=== PATIENT | male | born 1985 | race Caucasian/White ===

== ENCOUNTER 2018-02-11 17:09 | Emergency (ER) | payer MEDICAID ==
[2018-02-11] MEDS ORDERED: BUPIVACAINE 0.5% PF 10 ML VIAL SUBQ STA (20:28)
--- NOTE | 2018-02-11 21:14 | ED Physician Documentation ---
PD HPI UPPER EXT INJURY - Stated complaint Stated Complaint: L THUMB LAC - Chief complaint Chief Complaint: Laceration - History obtained from History obtained from: Patient, Family - History of Present Illness Location: Left, Finger (thumb) Type of injury: Laceration Where injury occurred: Home Timing - onset: Enter time (1600), Today Timing - duration: Hours Timing - details: Abrupt onset, Still present Improved by: Rest, Immobilization Worsened by: Moving, Palpating Associated symptoms: No: Weakness, Numbness, Tingling Contributing factors: No: Anticoagulated Similar symptoms before: Diagnosis (lacertion) Recently seen: Not recently seen - Additonal information Additional information: 32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 He states he was pushing a piece of wood through with a push stick and grabbed the leftover piece of wood and nicked the tip of his left thumb with table saw. He was able to control bleeding with direct pressure and is placed a dressing over it. He is come to the emergency department now for suturing. He is uncertain about his tetanus status. Review of Systems Constitutional: denies: Fever Eyes: denies: Decreased vision Ears: denies: Ear pain Nose: denies: Rhinorrhea / runny nose, Congestion Throat: denies: Sore throat Respiratory: denies: Cough GI: denies: Vomiting : denies: Dysuria, Frequency Skin: reports: Laceration (s). denies: Rash Musculoskeletal: reports: Extremity pain. denies: Neck pain, Back pain, Joint pain Neurologic: denies: Generalized weakness, Focal weakness, Numbness PD PAST MEDICAL HISTORY - Past Medical History Past Medical History: No Cardiovascular: None Respiratory: None Neuro: None Endocrine/Autoimmune: None GI: None : None HEENT: None Psych: None Musculoskeletal: None Derm: None - Past Surgical History Past Surgical History: Yes HEENT: Tonsil/Adenoidectomy - Present Medications Home Medications: Ambulatory Orders Medication Instructions Recorded Confirmed Amox/Clav 875/125 [Augmentin] 1 each PO Q12H #10 tablet 02/11/18 - Allergies Allergies/Adverse Reactions: Allergies Allergy/AdvReac Type Severity Reaction Status Date / Time No Known Drug Allergies Allergy Verified 02/11/18 17:23 - Social History Does the pt smoke?: No Smoking Status: Never smoker Does the pt drink ETOH?: Yes Does the pt have substance abuse?: No - Immunizations Immunizations are current?: No Immunizations: TDAP >10years/unknown - POLST Patient has POLST: No PD ED PE NORMAL - Vitals Vital signs reviewed: Yes (hypertensive ) - General General: Alert and oriented X 3, No acute distress, Well developed/nourished - HEENT HEENT: Atraumatic, PERRL, EOMI - Respiratory Respiratory: No respiratory distress - Derm Derm: Normal color, Warm and dry, No rash - Extremities Extremities: No deformity, Other (There is a macerated laceration to the tip of the left thumb he does penetrate deeply there are no shards of bone or palpable bone in the defect. 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, No motor deficit, No sensory deficit, Normal speech Eye Opening: Spontaneous Motor: Obeys Commands Verbal: Oriented GCS Score: 15 - Psych Psych: Normal mood, Normal affect Results - Vitals Vitals: Vital Signs - 24 hr 02/11/18 02/11/18 02/11/18 17:19 21:55 21:57 Temperature 36.4 C L 36.5 C Heart Rate 80 86 Respiratory 16 17 18 Rate Blood Pressure 147/90 H 145/99 H O2 Saturation 100 97 Oxygen O2 Source Room air - Rads (name of study) hand Radiology: Prelim report reviewed (Impression: Mildly displaced tuft fractures.), EMP read indepedently, See rad report Procedures - Laceration (location) left thumb Length in cm: 3 Wound type: Irregular, Into subcut fat, Clean Neurovascular status: Sensory intact, Motor intact, Vascular intact Anesthesia: Marcaine 0.5%, OTH (digital block) Wound Preparation: Hibiclens, Irrigated copiously NS, Wound explored, To the base Skin layer closure: Nylon, Interrupted, Size #-0 - enter number (4-0) Other: Patient tolerated well, No complications, Neurovascular intact, Dressing applied, Tetanus booster given Complexity: Simple PD MEDICAL DECISION MAKING - ED course Complexity details: reviewed results, re-evaluated patient, considered differential, d/w patient, d/w family ED course: 32-year-old male with a laceration to his left thumb with a lot of macerated tissue is cleaned and reapproximated x-ray of his thumb is obtained. There is evidence of violation of the bone and the patient is administered PO augmentin 875 Departure - Departure Disposition: 01 Home, Self Care Clinical Impression: Laceration of left thumb Qualifiers: Encounter type: initial encounter Damage to nail status: without damage Foreign body presence: without foreign body Qualified Code(s): S61.012A - Laceration without foreign body of left thumb without damage to nail, initial encounter Condition: Stable Instructions: ED Laceration Hand Follow-Up: Inge Burks ARNP [Primary Care Provider] - Prescriptions: Amox/Clav 875/125 [Augmentin] 1 each PO Q12H #10 tablet Comments: On x-ray examination of your thumb there is evidence of violation of the bone at the tip of your thumb. For this you will need to be on some prophylactic antibiotic for about 5 days. If you develop signs of infection return to the emergency department.
[2018-02-11] MEDS ORDERED: TETANUS/DIPHTHERIA/PERTUSSIS 0.5 ML SYRINGE IM ONE (21:17)
[2018-02-11] MEDS ORDERED: AMOX/CLAV 875 MG/125 MG TABLET PO STA (21:34)
--- NOTE | 2018-02-11 21:51 | XRAY Report ---
Reason: deep thumb lac tip Procedure Date: 02/11/2018 Accession Number: [id number] / [id number] Procedure: XR - Hand 3 View LT CPT Code: FULL RESULT: EXAM: LEFT HAND RADIOGRAPHY EXAM DATE: 02/11/2018 09:35 PM. CLINICAL HISTORY: Deep thumb laceration at tip. COMPARISON: None. TECHNIQUE: 3 views. FINDINGS: Bones: Mildly displaced tuft fractures. No other bony abnormality. Joints: Normal. No subluxations. Soft Tissues: Associated soft tissue swelling. IMPRESSION: Mildly displaced tuft fractures. RADIA
[2018-02-11 21:58] VITALS: BP 145/99
== END 2018-02-11 22:05 | disposition home or self-care (01) ==
LOC: ED 17:09
DX: S61.012A Laceration without foreign body of left thumb without damage to nail, initial encounter (principal); W27.0XXA Contact with workbench tool, initial encounter; Y92.009 Unspecified place in unspecified non-institutional (private) residence as the place of occurrence of the external cause; Z23 Encounter for immunization
CPT/HCPCS: 12002; 73130; 90471; 90715; 99283; A9270

== ENCOUNTER 2018-08-19 14:59 | Outpatient (CLI) | payer MEDICAID | END 2018-08-19 15:00 | disposition critical access hospital (66) | LOC: EMS 14:59 | PROVIDERS: ATTEND Surgery | DX: S06.9X1A Unspecified intracranial injury with loss of consciousness of 30 minutes or less, initial encounter (principal); S69.92XA Unspecified injury of left wrist, hand and finger(s), initial encounter; V22.4XXA Motorcycle driver injured in collision with two- or three-wheeled motor vehicle in traffic accident, initial encounter | CPT/HCPCS: A0425; A0427; A0999 ==

== ENCOUNTER 2018-08-19 15:30 | Emergency (ER) | payer MEDICAID ==
[2018-08-19] MEDS ORDERED: MORPHINE 2 MG/ML SYRINGE IVP STA (15:36)
[2018-08-19] MEDS ORDERED: SODIUM CHLORIDE 0.9% 1,000 ML IV ONE (15:37)
[2018-08-19] MEDS ORDERED: ONDANSETRON 4 MG/2 ML VIAL IVP STA (15:37)
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
[2018-08-19] MEDS ORDERED: IOVERSOL 320 100 ML VIAL IVP ONE ×2 (15:48→20:08)
[2018-08-19 15:53] LABS: BASOPHILS # (AUTO) 0.1 10^3/uL (0.0-0.1); BASOPHILS % (AUTO) 0.8 %; EOSINOPHILS % (AUTO) 0.4 %; HGB - HEMOGLOBIN 14.5 g/dL (14.0-18.0); LYMPHOCYTES # (AUTO) 1.5 10^3/uL (1.5-3.5); LYMPHOCYTES % (AUTO) 22.1 %; MEAN CORPUSCULAR HEMOGLOBIN 31.5 pg (27.0-31.0); MEAN CORPUSCULAR HGB CONC 34.5 g/dL (32.0-36.0); MEAN CORPUSCULAR VOLUME 91.4 fL (80.0-94.0); MEAN PLATELET VOLUME 7.3 fL (7.4-11.4); MONOCYTES # (AUTO) 0.4 10^3/uL (0.0-1.0); MONOCYTES % (AUTO) 6.3 %; NEUTROPHILS # (AUTO) 4.9 10^3/uL (1.5-6.6); NEUTROPHILS % (AUTO) 70.4 %; PLT - PLATELET COUNT 200 10^3/uL (130-450); RED BLOOD COUNT 4.59 10^6/uL (4.70-6.10); RED CELL DISTRIBUTION WIDTH 12.9 % (12.0-15.0); WHITE BLOOD COUNT 6.9 x10^3/uL (4.8-10.8)
[2018-08-19 16:09] LABS: ALBUMIN 4.4 g/dL (3.2-5.5); ALBUMIN/GLOBULIN RATIO 1.6 (1.0-2.2); BILIRUBIN,TOTAL 0.9 mg/dL (0.2-1.0); CALCIUM 9.5 mg/dL (8.5-10.3); CREATININE 0.9 mg/dL (0.6-1.2); TOTAL PROTEIN 7.2 g/dL (6.7-8.2)
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
[2018-08-19] MEDS ORDERED: BACITRACIN OINT TOP STA (17:00)
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
[2018-08-19 17:49] VITALS: BP 127/83
== END 2018-08-19 18:00 | disposition home or self-care (01) ==
LOC: EDUNIT# → ED 15:30
DX: S52.572A Other intraarticular fracture of lower end of left radius, initial encounter for closed fracture (principal); S62.391A Other fracture of second metacarpal bone, left hand, initial encounter for closed fracture; S62.393A Other fracture of third metacarpal bone, left hand, initial encounter for closed fracture; S00.81XA Abrasion of other part of head, initial encounter; S02.40DA Maxillary fracture, left side, initial encounter for closed fracture; S02.40CA Maxillary fracture, right side, initial encounter for closed fracture; S00.83XA Contusion of other part of head, initial encounter; V22.0XXA Motorcycle driver injured in collision with two- or three-wheeled motor vehicle in nontraffic accident, initial encounter; Y93.I9 Activity, other involving external motion; Y92.821 Forest as the place of occurrence of the external cause
CPT/HCPCS: 36415; 70450; 70486; 71260; 72125; 73110; 73130; 74177; 80053; 80320; 83690; 85025; 86850; 86900; 86901; 96374; 99284; 99285; A9270; J2270; Q9967

== ENCOUNTER 2018-09-27 07:51 | Day surgery (SDC) | payer MEDICAID ==
[~2018-09-27 07:51] MED LIST: CEFAZOLIN SODIUM IN 0.9 % NACL 2 GM/100 ML BAG IV ONE
[2018-09-27] MEDS ORDERED: LACTATED RINGERS 1,000 ML IV ONE (08:18)
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
[2018-09-27] MEDS ORDERED: BUPIVACAINE 0.5% PF 10 ML VIAL ONE (09:05)
[2018-09-27] MEDS ORDERED: LIDOCAINE-MPF 2% 5 ML VIAL IM ONE (09:30)
[2018-09-27] MEDS ORDERED: PROPOFOL 200 MG/20 ML VIAL IVP ONE (09:30)
[2018-09-27] MEDS ORDERED: ROCURONIUM 50 MG/5 ML VIAL IVP ONE (09:30)
[2018-09-27] MEDS ORDERED: ONDANSETRON 4 MG/2 ML VIAL IVP ONE (09:30)
[2018-09-27] MEDS ORDERED: KETOROLAC 30 MG/ML VIAL IVP ONE (09:30)
[2018-09-27] MEDS ORDERED: DEXAMETHASONE 4 MG/ML VIAL IVP ONE (09:30)
[2018-09-27] MEDS ORDERED: fentaNYL 100 MCG/2 ML VIAL IVP ONE (09:30)
[2018-09-27] MEDS ORDERED: MIDAZOLAM 2 MG/2 ML VIAL IVP ONE (09:30)
[2018-09-27] MEDS ORDERED: BUPIVACAINE 0.5% PF 30 ML VIAL INFIL ONE (09:51)
[2018-09-27] MEDS ORDERED: HYDROmorphone 0.5 MG/0.5 ML SYRINGE IVP PRN (10:24)
[2018-09-27] MEDS ORDERED: ONDANSETRON 4 MG/2 ML VIAL IVP PRN (10:24)
[2018-09-27] MEDS ORDERED: HYDROcod/ACETAM 5/325 MG TABLET PO PRN (10:24)
--- NOTE | 2018-09-27 10:29 | OPERATIVE REPORT ---
Operative Report - General Planned Procedure: Pilonidal cystectomy Pre-Op Diagnosis: Pilonidal cyst with abscess Procedure Performed: Pilonidal cystectomy with opening of abscess cavity Post Op Diagnosis: Same - Procedure Note Primary Surgeon: Cruz Reyna MD Anesthesia Provider: Tomas Hicks CRNA Anesthesia Technique: General ET tube, Local (30 mL of half percent Marcaine) IV Fluids (mL): 700 Estimated Blood Loss (mL): 15 Complications: None. - Other Other Information/Narrative: OPERATIVE DESCRIPTION/REPORT: After verbal and written informed consent was obtained detailing the risks of infection, bleeding requiring transfusion with its risks, nerve injury, and , and after I met with the patient confirming the surgery and the site of the surgery, the patient was brought to the operative suite and placed supine on the operating table. Great care was taken to avoid pressure points to prevent pressure necrosis or nerve injury. Monitoring devices were applied along with TEDs and pneumatic compressive stockings (to prevent DVT). The patient received preoperative antibiotics for surgical prophylaxis. Tomas Hicks CRNA sedated and anesthetized the patient for the entire procedure. The patient was prepped and draped in the usual sterile manner. With the patient draped my initials were clearly visible. A "time in" then confirmed that the patient was identified with 3 identifiers (name, date and medical record number), the history and physical was in the chart, the signed consent confirming the procedure was in the chart, the patient was in the correct position, the aforementioned prophylactic measures were in place or given, we had the correct personnel and equipment to complete the procedure and that anesthesia, surgery and nursing were given an opportunity to express any concerns. With the agreement of everyone in the room, we proceeded with the operation. An elliptical incision was then made encompassing all the pits. The pits were probed with a lacrimal duct probe to get an idea where and in which direction they were headed. The cyst had opened up into the patient's left buttock and this opening was separate and distinct from the pits. The incision was then taken down to the periosteum of the sacrum and the pilonidal cyst tract that had gone out to the left buttock was traversed with the plan of excising the entire tract. A 4 mm punch biopsy was used to excise the skin at the point of drainage on the left buttock and the tract was completely excised using Bovie electrocautery. The pilonidal cyst along with the attached skin was sent to pathology for evaluation. Meticulous hemostasis was obtained using Bovie electrocautery. Flaps were then raised laterally along the gluteus tanmay muscle in order to facilitate closure. This was primarily done using Bovie electrocautery. Once the skin could be brought together with the minimum amount of tension attention was directed to closure. The subcutaneous tissue was approximated using 2-0 Vicryl in an interrupted fashion. The skin was approximated using 2-0 nylon in an interrupted horizontal mattress stitches. This was done to better approximate the skin with the most support. Quarter inch iodophor gauze was placed into the 4 mm opening on the left buttock. A dressing was applied on the wound. At this point a time out was performed that confirmed that all the counts were correct, the procedure that was performed, the blood loss, the IV fluids administered, and the patients condition. A dressing was then applied. Having tolerated the procedure well, the patient was returned to a supine position, e xtubated, and subsequently taken to short stay in good and stable condition. [employer] disclaimer: This document was created in part using voice recognition technology. Because of the inherent limitations of the system ([employer]'s [employer] Dictate user manual states that the licensee understands that speech recognition is a statistical process and that recognition errors are inherent in the process), occasional same sounding word substitutions and grammatical errors do occur and persist despite proofreading. Please read this document for context.
[2018-09-27] MEDS ORDERED: HYDROcod/ACETAM 5/325 MG TABLET ONE (11:48)
[2018-09-27 12:03] VITALS: BP 117/82
== END 2018-09-27 07:52 | disposition home or self-care (01) ==
LOC: SDS 07:51
PROVIDERS: ATTEND Surgery
PROC: 0JB90ZZ Excision of Buttock Subcutaneous Tissue and Fascia, Open Approach (ICD-10-PCS; principal; 2018-09-27 09:00)
DX: L05.91 Pilonidal cyst without abscess (principal)
CPT/HCPCS: 11771; A9270; J0690; J7120

== ENCOUNTER 2018-09-30 21:26 | Outpatient (CLI) | payer MEDICAID | END 2018-09-30 21:27 | disposition critical access hospital (66) | LOC: EMS 21:26 | PROVIDERS: ATTEND Surgery | DX: G89.18 Other acute postprocedural pain (principal); M25.532 Pain in left wrist; M79.89 Other specified soft tissue disorders | CPT/HCPCS: A0425; A0427; A0999 ==

== ENCOUNTER 2018-09-30 22:17 | Emergency (ER) | payer MEDICAID ==
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
[2018-09-30] MEDS ORDERED: MORPHINE 10 MG/ML VIAL IVP STA (22:58)
[2018-09-30] MEDS ORDERED: KETOROLAC 30 MG/ML VIAL IVP STA (22:58)
--- NOTE | 2018-09-30 23:42 | XRAY Report ---
Reason: post operative pain Procedure Date: 09/30/2018 Accession Number: [id number] / [id number] Procedure: XR - Wrist 3 View LT CPT Code: FULL RESULT: EXAM: LEFT WRIST RADIOGRAPHY. EXAM DATE: 09/30/2018 11:15 PM. CLINICAL HISTORY: Post operative pain. COMPARISON: HAND 3 VIEW LT 08/19/2018 4:25 PM. WRIST 4 VIEW LT 08/19/2018 4:21 PM. TECHNIQUE: 3 views. FINDINGS: Bones: Subacute fractures of the second and third metacarpals status post operative fixation with unremarkable appearing surgical hardware. Fracture lines remain visible with anatomic alignment. Post distal radial fracture repair. The medial aspect of the epiphysis appears fragmented with intra-articular bony fragments and likely bony resorption. Remaining portion of the fracture repair appears unremarkable. Anatomic alignment. Tiny ulnar styloid fracture again noted. Joints: Normal. No subluxations. Soft Tissues: Swelling. IMPRESSION: 1. Post distal radial fracture repair. The medial aspect of the epiphysis appears fragmented with intra-articular bony fragments and likely bony resorption. Cannot exclude loosening and/or infection in the region. 2. Remaining portion of the fracture repairs of the radius and second/third metacarpals appears unremarkable. RADIA
[2018-10-01 00:23] VITALS: BP 142/106
== END 2018-10-01 00:23 | disposition home or self-care (01) ==
LOC: EDUNIT# → ED 22:17
DX: G89.18 Other acute postprocedural pain (principal); S62.301D Unspecified fracture of second metacarpal bone, left hand, subsequent encounter for fracture with routine healing; S52.502D Unspecified fracture of the lower end of left radius, subsequent encounter for closed fracture with routine healing; S62.303D Unspecified fracture of third metacarpal bone, left hand, subsequent encounter for fracture with routine healing; X58.XXXA Exposure to other specified factors, initial encounter
CPT/HCPCS: 96374; 99283

== ENCOUNTER 2020-02-26 09:38 | Outpatient (CLI) | payer MEDICAID ==
[2020-02-26 10:18] VITALS: BP 112/74
--- NOTE | 2020-02-26 10:18 | SLEEP CARE CONSULTATION ---
Information from patient questionnaire entered by Page Luciano. I have reviewed and concur with the information entered by Page Luciano. This document represents the service I personally performed and the decisions made by me, Pat Barreto ARNP. History of Present Illness Service Date and Time: 02/26/2020 09 Reason for Visit: New patient Chief Complaint: reports: Insomnia (hard time falling asleep), Unrefreshed sleep, Snoring (sometimes), Excessive daytime sleepiness, Fatigue, Frequent awakenings at night, Other (anxious feeling and ruminating thoughts keep him awake during the night). denies: Observed pauses in breathing Date of Onset: 2003 on and off Usual bedtime: 2099 Time it takes to fall asleep: 3-4 hours Snores at night: Yes (sometimes) Observed to quit breathing while asleep: No Sleeps alone due to snoring: No Number of times waking at night: 4+ Reasons for waking at night: reports: Pain, Bathroom. denies: Choking, Snoring, Gasping for air Toss, Turn, or Twitch while sleeping: Yes Recalls having dreams: No Usually gets out of bed at: 0700; weekends [id number] Feels refreshed in the morning: No Morning headache: No (sometimes; 1 x a month) Sleepy or fatigued during the day: Yes Ever fallen asleep while driving: No Takes day naps: No Dreams during day naps: No Prior sleep studies: No Additional HPI information: I had the pleasure of seeing ROMAIN ORTIZ today regarding the possibility of him having a sleep disorder. His current complaints are insomnia, fatigue, unrefreshed sleep, excessive daytime sleepiness and frequent night awakenings. - Parasomnia Symptoms Ever been unable to move upon waking from sleep: No Walks in sleep: No Talks in sleep: No Ever acted out dreams in sleep: No Ever felt weak in the knees when startled or emotional: No Bothered by creepy, crawly, restless sensations in legs: Yes (when going to bed, rub feet together a lot) Problems with memory or concentration: Yes (concentration) Subjective Initial [place] Sleepiness Scale score: 7 (in 2019) Past Medical History Past Medical History: reports: Anxiety, Depression, Attention deficit. denies: Hypertension, Claustrophobia, Diabetes, Arrythmia, Anemia, Impotence, Mood disorder, GERD Social History The patient's occupation is a CONTRACTOR. Patient is Single and lives in [place]. Have you smoked in the past 12 months: No Alcohol use: Yes Alcohol amount and frequency: 2-4, once/week Caffeine use: Yes Caffeine amount and frequency: 1 cup/day Family History Family history of sleep disordered breathing: No (he is adopted) Allergies and Home Medications Drug allergies reviewed: Yes (NKDA) Home medication list reviewed: Yes Allergy and home medication list: Lorazepam Review of Systems Weight gain over past 5 years: 30 Weight loss over past 5 years: 30 Cardiovascular: denies: high blood pressure, palpitations, chest pain, irregular heart rate or pulse Respiratory: reports: shortness of breath Gastrointestinal: denies: heartburn, difficulty swallowing Urinary: denies: impotence Neurological: reports: headaches, head trauma (few concussions, last one in 2011). denies: seizure, speech dysfunction, gait or balance problems Psychiatric: reports: Attention Deficit Hyperactivity, anxiety, depression. denies: mood disorder, claustrophobia Ear/Nose/Throat: reports: injury to nose (broken nose 2011). denies: nasal congestion, sinus problems, nose bleeds, dry mouth/throat, tonsillectomy, wisdom teeth removed Endocrine: denies: thyroid disease Musculoskeletal: reports: neck pain, back pain Immunologic: reports: allergies to food or environment (bees) Physical Exam Blood Pressure: 112/74 Cuff size: wrist Heart Rate: 61 O2 Saturation: 99 Height: 6 ft 2 in Weight: 198 lb Body Mass Index: 25.4 BMI Classification: Overweight Neck circumference: 15 (inches) Nostrils: patent to airflow Turbinates: swollen Septum: midline Mouth and throat: narrow oropharynx Uvula visualization: 50% Mallampati Class II Tongue: enlarged in size with teeth guerra on lateral edges Tonsils: 1+ Chin and jaw: normal size and position Neck: normal w/o lymphadenopathy or thyromegaly Heart: regular rate and rhythm Lungs: clear bilaterally Impression and Plan 1. Suspected Obstructive Sleep Apnea-Hypopnea Syndrome, as suggested by a history of irregular snoring, frequent awakening during the night, unrefreshed sleep, cognitive impairment, and excessive daytime sleepiness. I reviewed with patient that a narrow oropharynx and obesity are common predisposing factors for obstructive sleep apnea-hypopnea syndrome. I recommend proceeding to polysomnography to confirm the diagnosis and to assess severity. If the patient has significant sleep disordered breathing, a manual CPAP titration study will also be performed to find the optimal treatment pressure. I informed the patient of what the sleep studies involve and after some discussion, obtained agreement to proceed. The pathophysiology of obstructive sleep apnea-hypopnea syndrome was discussed with the patient and health risks of cardiovascular and cerebrovascular disease if not treated. [facility] brochure for obstructive sleep apnea-hypopnea syndrome given and reviewed. Risks of drowsy driving discussed in detail and patient advised to avoid long distance driving and to felt puller at the first sign of drowsiness. Patient agreed to plan. * Schedule polysomnography +- manual CPAP titration study. * Avoid long distance driving or driving when feeling sleepy. * Avoid alcohol, sedative and muscle relaxant around bedtime. * Attempt to lose weight. * Review instructions provided by trained office staff on how to prepare for the sleep study. * Return for follow-up after sleep study completed. Counseling Topics: Weight loss health impact Visit Type: In Office Time Spent with Patient (minutes): 30 Provider Statement: I spent 100% of the Face to Face Visit with the patient with greater than 50% spent counseling the patient and coordination of care.
== END 2020-02-26 09:39 | disposition home or self-care (01) ==
LOC: SC 09:38
PROVIDERS: ATTEND Nurse Practitioner Family
DX: G47.10 Hypersomnia, unspecified (principal); G47.8 Other sleep disorders; R41.89 Other symptoms and signs involving cognitive functions and awareness; R06.83 Snoring; E66.3 Overweight; Z68.25 Body mass index [BMI] 25.0-25.9, adult
CPT/HCPCS: 99203; 99212